=== PATIENT | female | born 2000 | race Caucasian/White ===

== ENCOUNTER → 2024-11-17 | Outpatient (CLI) | payer OTHER ==
[2024-11-17 13:11] LABS: HCG,Quantitative Serum <3.0 mIU/mL (0.0-6.0)
[2024-11-17 13:59] LABS: Hepatitis B Surface Antigen Nonreactive (Nonreactive); Hepatitis C IgG Antibody Nonreactive (Nonreactive)
[2024-11-17 15:13] LABS: Hepatitis B Surface AB- Quant 3.5 mIU/mL
== END | disposition home or self-care (01) ==
LOC: LABWHC1 08:29
PROVIDERS: ATTEND Dermatology MOHS-Micrographic Surgery
DX: L20.89 Other atopic dermatitis (principal); Z79.899 Other long term (current) drug therapy
CPT/HCPCS: 36415; 82465; 83735; 84478; 84702; 86706; 86803; 87340